=== PATIENT | male | born 1955 | race Caucasian/White ===

== ENCOUNTER 2017-08-06 06:46 | Day surgery (SDC) | payer MEDICARE, BC ==
[~2017-08-06 06:46] MED LIST: Lactated Ringers 1,000 ML IV SCH; Sodium Chloride 0.9% 10 ML Syringe FLUSH PRN
[2017-08-06] MEDS ORDERED: fentaNYL 100 MCG/2 ML SDV IV ONE (08:30)
[2017-08-06] MEDS ORDERED: Propofol 200 MG/20 ML SDV IV ONE (08:30)
[2017-08-06] MEDS ORDERED: Midazolam 1 MG/ML 2 ML SDV IV ONE (08:30)
--- NOTE | 2017-08-06 08:48 | PCM.OPNOTE ---
- General Post-Op/Procedure Note Date of Surgery/Procedure: 08/06/17 Operative Procedure(s): c scope with bx Findings: rectal polyps Pre Op Diagnosis: hx of colon polyps Post-Op Diagnosis: rectal polyps Anesthesia Technique: MAC Primary Surgeon: Riso Rasmussen Anesthesia Provider: Phill Mobley Pathology: rectal polyps Complications: None Condition: Good Free Text/Narrative:: see dictation
--- NOTE | 2017-08-06 09:53 | OR ---
DATE OF OPERATION: 08/06/2017 SURGEON: Rios Rasmussen MD PROCEDURE PERFORMED: Colonoscopy with cold forceps biopsy. PREOPERATIVE DIAGNOSIS: Personal history of colon polyps. POSTOPERATIVE DIAGNOSIS: Hyperplastic rectal polyps. INDICATIONS FOR PROCEDURE: This is a 62-year-old white male who presents for his followup colonoscopy. Previous scope demonstrated adenomatous polyps. He was offered and accepted colonoscope. DESCRIPTION OF OPERATION: After an excellent IV sedation was administered, digital rectal exam was performed. No marked abnormality was noted. The flexible colonoscope was inserted and advanced to the cecum without difficulty. The prep was excellent. The following findings were noted. Ascending colon, unremarkable. Transverse colon, unremarkable. Descending colon, unremarkable. Sigmoid, unremarkable. Rectum, scattered hyperplastic polyp lesions biopsied and sent for permanent. Colon was deflated. Scope was removed. Biopsy results by letter and followup scope on the basis of this pathology report. /[id number] /[place]
== END 2017-08-06 09:52 | disposition home or self-care (01) ==
LOC: FB.SDS 06:46
PROVIDERS: ATTEND Surgery
DX: Z12.11 Encounter for screening for malignant neoplasm of colon (principal); K62.1 Rectal polyp; I25.10 Atherosclerotic heart disease of native coronary artery without angina pectoris; N18.3 Chronic kidney disease, stage 3 (moderate); E78.5 Hyperlipidemia, unspecified; F32.9 Major depressive disorder, single episode, unspecified; F17.210 Nicotine dependence, cigarettes, uncomplicated; Z86.010 Personal history of colon polyps; Z79.82 Long term (current) use of aspirin; Z79.899 Other long term (current) drug therapy
CPT/HCPCS: 00812; 45380; 88305; J2250; J2704; J3010; J7120

== ENCOUNTER 2022-03-04 20:58 | Emergency (ER) | payer BC, MEDICARE ==
[2022-03-04] MEDS ORDERED: Acetaminophen/HYDROcodone 325-5 MG Tab PO ONE (20:59)
[2022-03-04] MEDS ORDERED: Azithromycin 250 MG Tab PO ONE (20:59)
[2022-03-04] MEDS ORDERED: Acetaminophen 500 MG Tab PO ONE (22:11)
[2022-03-04] MEDS ORDERED: Dexamethasone 4 MG/ML SDV IVPUSH ONE (22:12)
[2022-03-04] MEDS ORDERED: Azithromycin 500 MG in Sodium Chloride 0.9% 250 ML IV ONE (22:13)
[2022-03-04] MEDS ORDERED: Ondansetron 4 MG/2 ML SDV IVPUSH ONE (23:13)
[2022-03-04 23:22] LABS: ESTIMATED GFR 40 mL/min (>60)
[2022-03-04] MEDS ORDERED: Sodium Chloride 0.9% 1,000 ML IV ONE (23:36)
[2022-03-04] MEDS ORDERED: Iopamidol 755 Mg/ML 75 ML Bottle IV ONE (23:54)
[2022-03-05] MEDS ORDERED: Acetaminophen/HYDROcodone 325-10 MG Tab PO ONE (01:54)
== END 2022-03-05 02:26 | disposition home or self-care (01) ==
LOC: FB.ED 20:58
DX: U07.1 COVID-19 (principal); J12.82 Pneumonia due to coronavirus disease 2019; R79.82 Elevated C-reactive protein (CRP); R79.1 Abnormal coagulation profile; I25.10 Atherosclerotic heart disease of native coronary artery without angina pectoris; E78.00 Pure hypercholesterolemia, unspecified; E66.9 Obesity, unspecified; Z68.37 Body mass index [BMI] 37.0-37.9, adult; Z79.82 Long term (current) use of aspirin; Z79.899 Other long term (current) drug therapy
CPT/HCPCS: 36415; 71045; 71275; 80053; 85025; 85379; 86140; 87804; 96361; 96365; 96375; 99285; A9270; J0456; J1100; J2405; J7030; J7050; Q9967

== ENCOUNTER 2023-05-26 17:28 | Inpatient (IN) | payer MEDICARE ==
[2023-05-26] MEDS ORDERED: Sodium Chloride 0.9% 1,000 ML IV ONE ×2 (17:32→19:21)
[2023-05-26] MEDS ORDERED: Ondansetron 4 MG/2 ML SDV IVPUSH ONE (17:32)
[2023-05-26] MEDS: Sodium Chloride 0.9% 10 ML Syringe FLUSH PRN (17:45)
[2023-05-26 17:56] LABS: HEMATOCRIT 46.3 % (38.3-50.1); HEMOGLOBIN 15.4 g/dL (12.9-17.7); MEAN CORPUSCULAR HEMOGLOBIN 30.7 pg (27.0-33.3); MEAN CORPUSCULAR HGB CONC 33.3 g/dL (28.7-35.3); MEAN PLATELET VOLUME 8.5 fL (6.7-11.0); PLATELET COUNT,PLT 297 x10(3)uL (117-477); RED BLOOD CELL COUNT 5.02 x10(6)uL (3.90-5.90); RED CELL DISTRIBUTION WIDTH 14.3 % (12.4-15.0)
[2023-05-26 18:00] LABS: BLOOD UREA NITROGEN,BUN 18 mg/dL (7-18); BUN/CREATININE RATIO 11.3 (9-20); CALCIUM 9.9 mg/dL (8.6-10.2); CARBON DIOXIDE,CO2 25 mmol/L (21-32); CHLORIDE,CL 102 mmol/L (100-110); CREATININE 1.6 mg/dL (0.70-1.30); ESTIMATED GFR 46 mL/min (>60); GLUCOSE RANDOM 168 mg/dL (80-116); POTASSIUM,K 4.1 mmol/L (3.5-5.3); SODIUM,NA 138 mmol/L (135-145)
[2023-05-26 18:03] LABS: A/G RATIO 0.9; ALANINE AMINOTRANSFERASE,ALT 34 U/L (12-36); ALBUMIN 3.5 g/dL (3.2-4.6); ALKALINE PHOSPHATASE 88 IU/L (56-112); ASPARTATE AMNIOTRANSFERASE,AST 18 IU/L (5-25); BILIRUBIN TOTAL 0.6 mg/dL (0.1-1.3); MAGNESIUM 1.5 mg/dL (1.8-2.5); PROTEIN TOTAL,TP 7.3 g/dL (6.0-8.0)
[2023-05-26 18:09] LABS: C-REACTIVE PROTEIN 3.21 mg/dL (<0.50)
[2023-05-26 18:13] LABS: LYMPHOCYTES PERCENT MAN 7 % (13-37); MONOCYTES PERCENT MAN 5 % (4-12); SEG NEUTROPHILS PERCENT MAN 88 % (46-82)
[2023-05-26] MEDS ORDERED: HYDROmorphone 2 MG/ML SDV IVPUSH ONE (18:26)
[2023-05-26] MEDS ORDERED: Naloxone 0.4 MG/ML SDV IVPUSH PRN (18:26)
[2023-05-26] MEDS ORDERED: Piperacillin/Tazobactam 4.5 GM in Sodium Chloride 0.9% 100 ML IV ONE (19:21)
[2023-05-26] MEDS ORDERED: VANCOmycin 2 GM/400 ML 2 GM in Premix Bag 1 BAG IV ONE (19:30)
[2023-05-26] MEDS ORDERED: VANCOmycin 1 GM/200 ML 200 ML ONE (19:30)
[2023-05-26 20:26] LABS: BILIRUBIN,URINE NEGATIVE (NEGATIVE); GLUCOSE,URINE NORMAL (NORMAL); KETONES,URINE 15 mg/dL (NEGATIVE); LEUKOCYTE ESTERASE,URINE NEGATIVE (NEGATIVE); NITRITE,URINE NEGATIVE (NEGATIVE); OCCULT BLOOD,URINE LARGE (NEGATIVE); PROTEIN,URINE 100 mg/dL (NEGATIVE); UROBILINOGEN,URINE NORMAL (NEGATIVE)
[2023-05-26 20:29] LABS: APPEARANCE,URINE CLEAR (CLEAR); BACTERIA,URINE FEW (NS); COLOR,URINE YELLOW (YELLOW); HYALINE CASTS,URINE FEW (NS); SQUAMOUS EPITHELIAL CELLS,UR OCCASIONAL (NS,R,O); WBC,URINE 0-5 (0-5)
[2023-05-26 21:57] LABS: HEMATOCRIT 41.8 % (38.3-50.1); HEMOGLOBIN 14.1 g/dL (12.9-17.7); MEAN CORPUSCULAR HEMOGLOBIN 31.2 pg (27.0-33.3); MEAN CORPUSCULAR HGB CONC 33.8 g/dL (28.7-35.3); MEAN CORPUSCULAR VOLUME 92.4 fL (80.8-98.7); MEAN PLATELET VOLUME 8.1 fL (6.7-11.0); PLATELET COUNT,PLT 257 x10(3)uL (117-477); RED BLOOD CELL COUNT 4.52 x10(6)uL (3.90-5.90); RED CELL DISTRIBUTION WIDTH 14.4 % (12.4-15.0); WHITE BLOOD CELL COUNT,WBC 16.2 x10-3/uL (3.2-10.1)
[2023-05-26] MEDS: Ketorolac 30 MG/ML SDV IVPUSH PRN (22:09)
[2023-05-26] MEDS: Dextrose 5%-Lactated Ringers 1,000 ML IV SCH (22:38)
[2023-05-26 22:46] LABS: LYMPHOCYTES PERCENT MAN 7 % (13-37); MONOCYTES PERCENT MAN 6 % (4-12); SEG NEUTROPHILS PERCENT MAN 87 % (46-82)
[2023-05-27] MEDS: Piperacillin/Tazobactam 4.5 GM in Sodium Chloride 0.9% 100 ML IV SCH ×4 (01:55→20:12)
[2023-05-27] MEDS: Ketorolac 30 MG/ML SDV IVPUSH PRN (05:35)
[2023-05-27] MEDS: Sodium Chloride 0.9% 10 ML Syringe FLUSH PRN ×3 (05:36→20:13)
[2023-05-27 06:59] LABS: HEMATOCRIT 41.4 % (38.3-50.1); HEMOGLOBIN 13.6 g/dL (12.9-17.7); MEAN CORPUSCULAR HEMOGLOBIN 30.4 pg (27.0-33.3); MEAN CORPUSCULAR HGB CONC 32.8 g/dL (28.7-35.3); MEAN CORPUSCULAR VOLUME 92.8 fL (80.8-98.7); RED BLOOD CELL COUNT 4.46 x10(6)uL (3.90-5.90); RED CELL DISTRIBUTION WIDTH 14.2 % (12.4-15.0); WHITE BLOOD CELL COUNT,WBC 18.1 x10-3/uL (3.2-10.1)
[2023-05-27 07:05] LABS: PROTHROMBIN TIME 10.3 sec (9.0-11.1)
[2023-05-27 07:08] LABS: A/G RATIO 0.8; ALANINE AMINOTRANSFERASE,ALT 31 U/L (12-36); ALBUMIN 2.8 g/dL (3.2-4.6); ALKALINE PHOSPHATASE 73 IU/L (56-112); ASPARTATE AMNIOTRANSFERASE,AST 17 IU/L (5-25); BILIRUBIN TOTAL 0.5 mg/dL (0.1-1.3); BLOOD UREA NITROGEN,BUN 21 mg/dL (7-18); BUN/CREATININE RATIO 13.1 (9-20); CALCIUM 8.9 mg/dL (8.6-10.2); CARBON DIOXIDE,CO2 28 mmol/L (21-32); CHLORIDE,CL 105 mmol/L (100-110); CREATININE 1.6 mg/dL (0.70-1.30); EST CRCL DRUG DOSING (CG) 40.74 mL/min; ESTIMATED GFR 46 mL/min (>60); GLUCOSE RANDOM 125 mg/dL (80-116); POTASSIUM,K 3.7 mmol/L (3.5-5.3); PROTEIN TOTAL,TP 6.2 g/dL (6.0-8.0); SODIUM,NA 139 mmol/L (135-145)
[2023-05-27] MEDS: Dextrose 5%-Lactated Ringers 1,000 ML IV SCH ×2 (08:11→15:57)
[2023-05-27] MEDS ORDERED: Ondansetron 4 MG/2 ML SDV IVPUSH PRN (09:21)
[2023-05-27] MEDS ORDERED: Metoprolol Succinate 25 MG Tab.ER PO SCH (10:15)
[2023-05-27] MEDS ORDERED: Venlafaxine 150 MG Cap.ER PO SCH (10:15)
[2023-05-27] MEDS ORDERED: Losartan 25 MG Tab PO SCH (10:15)
[2023-05-27] MEDS ORDERED: Pantoprazole 40 MG Tab.CR PO SCH (10:15)
[2023-05-27 15:12] LABS: HEMATOCRIT 39.4 % (38.3-50.1); HEMOGLOBIN 12.9 g/dL (12.9-17.7)
[2023-05-27 15:44] LABS: HEMATOCRIT 38.9 % (38.3-50.1); HEMOGLOBIN 12.9 g/dL (12.9-17.7); MEAN CORPUSCULAR HEMOGLOBIN 30.8 pg (27.0-33.3); MEAN CORPUSCULAR HGB CONC 33.3 g/dL (28.7-35.3); MEAN CORPUSCULAR VOLUME 92.5 fL (80.8-98.7); MEAN PLATELET VOLUME 8.8 fL (6.7-11.0); PLATELET COUNT,PLT 245 x10(3)uL (117-477); RED BLOOD CELL COUNT 4.21 x10(6)uL (3.90-5.90); RED CELL DISTRIBUTION WIDTH 14.4 % (12.4-15.0); WHITE BLOOD CELL COUNT,WBC 16.1 x10-3/uL (3.2-10.1)
[2023-05-27 16:08] LABS: EOSINOPHILS PERCENT MAN 1 % (0-5); LYMPHOCYTES PERCENT MAN 10 % (13-37); MONOCYTES PERCENT MAN 8 % (4-12); SEG NEUTROPHILS PERCENT MAN 81 % (46-82)
[2023-05-27] MEDS: HYDROmorphone 2 MG/ML SDV IVPUSH PRN (19:59)
[2023-05-27] MEDS: Finasteride 5 MG Tab PO SCH (20:13)
[2023-05-28] MEDS: Melatonin 3 MG Tab PO PRN ×2 (00:19→20:53)
[2023-05-28] MEDS: Dextrose 5%-Lactated Ringers 1,000 ML IV SCH (00:20)
[2023-05-28] MEDS: Piperacillin/Tazobactam 4.5 GM in Sodium Chloride 0.9% 100 ML IV SCH (02:24)
[2023-05-28] MEDS: Sodium Chloride 0.9% 10 ML Syringe FLUSH PRN ×2 (02:25→04:37)
[2023-05-28] MEDS: HYDROmorphone 2 MG/ML SDV IVPUSH PRN (04:37)
[2023-05-28 06:36] LABS: HEMATOCRIT 37.7 % (38.3-50.1); HEMOGLOBIN 12.3 g/dL (12.9-17.7); MEAN CORPUSCULAR HEMOGLOBIN 30.8 pg (27.0-33.3); MEAN CORPUSCULAR HGB CONC 32.8 g/dL (28.7-35.3); MEAN PLATELET VOLUME 8.6 fL (6.7-11.0); PLATELET COUNT,PLT 224 x10(3)uL (117-477); RED BLOOD CELL COUNT 4.01 x10(6)uL (3.90-5.90); RED CELL DISTRIBUTION WIDTH 14.9 % (12.4-15.0); WHITE BLOOD CELL COUNT,WBC 14.3 x10-3/uL (3.2-10.1)
[2023-05-28 06:45] LABS: BLOOD UREA NITROGEN,BUN 13 mg/dL (7-18); BUN/CREATININE RATIO 9.3 (9-20); CALCIUM 8.6 mg/dL (8.6-10.2); CARBON DIOXIDE,CO2 33 mmol/L (21-32); CHLORIDE,CL 105 mmol/L (100-110); CREATININE 1.4 mg/dL (0.70-1.30); EST CRCL DRUG DOSING (CG) 46.56 mL/min; ESTIMATED GFR 54 mL/min (>60); GLUCOSE RANDOM 129 mg/dL (80-116); POTASSIUM,K 3.7 mmol/L (3.5-5.3); SODIUM,NA 140 mmol/L (135-145)
[2023-05-28 06:50] LABS: EOSINOPHILS PERCENT MAN 2 % (0-5); LYMPHOCYTES PERCENT MAN 19 % (13-37); MONOCYTES PERCENT MAN 10 % (4-12); SEG NEUTROPHILS PERCENT MAN 69 % (46-82)
[2023-05-28] MEDS ORDERED: OMEPRAZOLE 20 MG PO SCH (08:00)
[2023-05-28] MEDS ORDERED: VENLAFAXINE 150 MG PO SCH (08:00)
[2023-05-28] MEDS: Venlafaxine 150 MG Cap.ER PO SCH (10:05)
[2023-05-28] MEDS: Pantoprazole 40 MG Tab.CR PO SCH (10:05)
[2023-05-28] MEDS: Losartan 25 MG Tab PO SCH (10:05)
[2023-05-28] MEDS: Metoprolol Succinate 25 MG Tab.ER PO SCH (10:05)
[2023-05-28] MEDS: Ciprofloxacin 500 MG Tab PO SCH ×2 (10:06→20:48)
[2023-05-28] MEDS: Acetaminophen/HYDROcodone 325-5 MG Tab PO PRN ×2 (12:03→20:53)
[2023-05-28] MEDS: Ondansetron 4 MG Tab.DIS PO PRN ×2 (12:36→20:53)
[2023-05-28] MEDS: Finasteride 5 MG Tab PO SCH (20:48)
[2023-05-29 07:07] LABS: HEMATOCRIT 39.2 % (38.3-50.1); HEMOGLOBIN 12.9 g/dL (12.9-17.7); MEAN CORPUSCULAR HEMOGLOBIN 30.8 pg (27.0-33.3); MEAN CORPUSCULAR VOLUME 93.4 fL (80.8-98.7); MEAN PLATELET VOLUME 8.7 fL (6.7-11.0); PLATELET COUNT,PLT 236 x10(3)uL (117-477); RED CELL DISTRIBUTION WIDTH 14.1 % (12.4-15.0); WHITE BLOOD CELL COUNT,WBC 14.2 x10-3/uL (3.2-10.1)
[2023-05-29 07:18] LABS: BLOOD UREA NITROGEN,BUN 10 mg/dL (7-18); BUN/CREATININE RATIO 7.1 (9-20); CARBON DIOXIDE,CO2 34 mmol/L (21-32); CHLORIDE,CL 104 mmol/L (100-110); CREATININE 1.4 mg/dL (0.70-1.30); EST CRCL DRUG DOSING (CG) 46.56 mL/min; ESTIMATED GFR 54 mL/min (>60); GLUCOSE RANDOM 114 mg/dL (80-116); POTASSIUM,K 3.5 mmol/L (3.5-5.3); SODIUM,NA 141 mmol/L (135-145)
[2023-05-29 07:33] LABS: EOSINOPHILS PERCENT MAN 3 % (0-5); LYMPHOCYTES PERCENT MAN 23 % (13-37); MONOCYTES PERCENT MAN 7 % (4-12); SEG NEUTROPHILS PERCENT MAN 67 % (46-82)
[2023-05-29] MEDS: Venlafaxine 150 MG Cap.ER PO SCH (07:54)
[2023-05-29] MEDS: Losartan 25 MG Tab PO SCH (07:54)
[2023-05-29] MEDS: Metoprolol Succinate 25 MG Tab.ER PO SCH (07:55)
[2023-05-29] MEDS: Pantoprazole 40 MG Tab.CR PO SCH (07:55)
[2023-05-29] MEDS: Ciprofloxacin 500 MG Tab PO SCH (08:03)
[2023-05-29] MEDS: Acetaminophen/HYDROcodone 325-5 MG Tab PO PRN (09:21)
[2023-05-30 12:39] LABS: C. DIFF TOXIN B GENE TCDB,PCR Detected
== END 2023-05-29 10:20 | disposition home or self-care (01) | DRG 392 ==
LOC: FB.ED 17:28 → FB.MS 21:49 → OBSVTOIN 05-28 20:00
PROVIDERS: ADMIT Family Medicine; ATTEND Family Medicine
DX: K52.9 Noninfective gastroenteritis and colitis, unspecified (principal); R10.84 Generalized abdominal pain; K92.1 Melena; I25.810 Atherosclerosis of coronary artery bypass graft(s) without angina pectoris; E87.20 Acidosis, unspecified; Z68.41 Body mass index [BMI] 40.0-44.9, adult; N17.9 Acute kidney failure, unspecified; Z79.01 Long term (current) use of anticoagulants; A05.9 Bacterial foodborne intoxication, unspecified; E78.00 Pure hypercholesterolemia, unspecified; I25.10 Atherosclerotic heart disease of native coronary artery without angina pectoris; N40.0 Benign prostatic hyperplasia without lower urinary tract symptoms; M10.9 Gout, unspecified; F32.A Depression, unspecified; E66.9 Obesity, unspecified; F17.210 Nicotine dependence, cigarettes, uncomplicated; Z11.52 Encounter for screening for COVID-19; Z79.899 Other long term (current) drug therapy; Z95.1 Presence of aortocoronary bypass graft; Z86.010 Personal history of colon polyps; Z87.442 Personal history of urinary calculi; Z98.890 Other specified postprocedural states; Z90.5 Acquired absence of kidney; Z98.52 Vasectomy status
CPT/HCPCS: 36415; 71046; 74176; 80048; 80053; 81001; 83605; 83690; 83735; 84484; 85014; 85018; 85025; 85027; 85610; 86140; 87040; 87086; 87088; 87186; 87230; 87493; 93005; A9270-GY; J1170; J1885; J2405; J2543; J3370; J3490; J7030; J7121; Q0162; U0002